=== PATIENT | female | born 1995 | race Two or more races ===

== ENCOUNTER 2022-06-20 16:31 | Emergency (ER) | payer SELFPAY | END 2022-06-20 18:11 | disposition home or self-care (01) | LOC: MW.ED 16:31 | DX: O99.891 Other specified diseases and conditions complicating pregnancy (principal); Z3A.12 12 weeks gestation of pregnancy | CPT/HCPCS: 99283 ==

== ENCOUNTER 2022-10-12 10:31 | Emergency (ER) | payer OTHER | END 2022-10-12 12:07 | disposition home or self-care (01) | LOC: MW.ED 10:31 | DX: O9A.213 Injury, poisoning and certain other consequences of external causes complicating pregnancy, third trimester (principal); S60.141A Contusion of right ring finger with damage to nail, initial encounter; Z3A.28 28 weeks gestation of pregnancy; W22.09XA Striking against other stationary object, initial encounter | CPT/HCPCS: 11740; 99283 ==

== ENCOUNTER 2022-11-16 22:19 | Emergency (ER) | payer SELFPAY ==
[2022-11-16] MEDS ORDERED: diphenhydrAMINE 50 MG/ML SDV IVPUSH ONE (22:34)
[2022-11-16 22:55] LABS: BASOPHILS PERCENT AUTO 0.2 % (0.0-1.5); EOSINOPHILS ABSOLUTE AUTO 0.1 K/uL (0.0-0.7); EOSINOPHILS PERCENT AUTO 0.9 % (0.0-7.0); HEMATOCRIT 35.6 % (36.0-46.0); HEMOGLOBIN 11.6 g/dL (12.0-16.0); LYMPHOCYTES ABSOLUTE AUTO 3.1 K/uL (0.6-2.4); LYMPHOCYTES PERCENT AUTO 35.3 % (16.0-40.0); MEAN CORPUSCULAR HEMOGLOBIN 23.8 pg (27.0-32.0); MEAN CORPUSCULAR HGB CONC 32.6 g/dL (31.0-37.0); MEAN CORPUSCULAR VOLUME 73.1 fL (80.0-98.0); MONOCYTES ABSOLUTE AUTO 0.5 K/uL (0.0-0.8); MONOCYTES PERCENT AUTO 5.5 % (0.0-15.0); NEUTROPHILS PERCENT AUTO 58.1 % (48.0-80.0); NRBC ABSOLUTE 0 K/uL; PLATELET COUNT,PLT 389 K/uL (150-400); RED BLOOD CELL COUNT 4.87 M/uL (4.30-5.90); WHITE BLOOD CELL COUNT,WBC 8.69 K/uL (4.0-11.0)
[2022-11-16 23:20] LABS: A/G RATIO 0.5 (0.9-1.6); ALBUMIN 2.3 g/dL (3.4-5.0); BILIRUBIN TOTAL 0.2 mg/dL (0.2-1.0); CALCIUM 8.4 mg/dL (8.5-10.1); CARBON DIOXIDE,CO2 23.2 mmol/L (21.0-32.0); CREATININE 0.6 mg/dL (0.6-1.0); EST CRCL DRUG DOSING (CG) 121.62 mL/min; POTASSIUM,K 3.8 mmol/L (3.5-5.1); PROTEIN TOTAL,TP 6.7 g/dL (6.4-8.2)
== END 2022-11-16 23:49 | disposition home or self-care (01) ==
LOC: MW.ED 22:19
DX: L29.9 Pruritus, unspecified (principal)
CPT/HCPCS: 36415; 80053; 85025; 96374; 99283; J1200

== ENCOUNTER 2024-02-06 06:53 | Emergency (ER) | payer BC, MEDICAID ==
[2024-02-06] MEDS: Dexamethasone 4 MG Tab PO ONE (07:29)
[2024-02-06] MEDS: Acetaminophen 500 MG Tab PO ONE (07:30)
[2024-02-06] MEDS: Ibuprofen 600 MG Tab PO ONE (07:31)
== END 2024-02-06 07:44 | disposition home or self-care (01) ==
LOC: MW.ED 06:53
DX: H66.91 Otitis media, unspecified, right ear (principal); I10 Essential (primary) hypertension; R05.9 Cough, unspecified; R09.81 Nasal congestion; J02.9 Acute pharyngitis, unspecified; R00.0 Tachycardia, unspecified; H92.01 Otalgia, right ear; Z75.8 Other problems related to medical facilities and other health care
CPT/HCPCS: 99283; A9270; J8540

== ENCOUNTER 2024-09-05 07:18 | Day surgery (SDC) | payer MEDICAID ==
[2024-09-05] MEDS ORDERED: Ferric Subsulfate Topical Soln 8 GM (8 ML) Bottle ONE (07:35)
[2024-09-05] MEDS ORDERED: Lidocaine 1% with EPINEPHrine 1:100,000 10 ML MDV ONE (07:35)
[2024-09-05] MEDS ORDERED: Iodine/Potassium Iodide 5% Solution 14 ML Bottle ONE (07:35)
[2024-09-05] MEDS: Scopalamine 1mg/3day Transdermal Patch TOP ONE (07:49)
[2024-09-05] MEDS ORDERED: Albuterol 0.083% 2.5 MG/3 ML Neb Soln NEB PRN (07:55)
[2024-09-05] MEDS ORDERED: fentaNYL 50 MCG/ML SDV IVPUSH PRN (07:55)
[2024-09-05] MEDS ORDERED: Metoclopramide 10 MG/2 ML SDV IVPUSH PRN (07:55)
[2024-09-05] MEDS ORDERED: Phenylephrine HCl In 0.9% NaCl 1 MG/10 ML Syringe IVPUSH PRN (07:55)
[2024-09-05] MEDS ORDERED: Ondansetron 4 MG/2 ML SDV IVPUSH PRN (07:55)
[2024-09-05] MEDS ORDERED: Naloxone 0.4 MG/ML SDV IVPUSH PRN (07:55)
[2024-09-05] MEDS ORDERED: Morphine 2 MG/ML SYRINGE IVPUSH PRN (07:55)
[2024-09-05] MEDS ORDERED: HYDROmorphone 1 MG/ML Syringe IVPUSH PRN (07:55)
[2024-09-05] MEDS: Lactated Ringers 1,000 ML IV SCH (08:23)
[2024-09-05 08:32] LABS: HEMOGLOBIN 14.2 g/dL (12.0-16.0); MEAN CORPUSCULAR HEMOGLOBIN 27.5 pg (28.0-32.0); MEAN CORPUSCULAR HGB CONC 33.8 g/dL (32.0-36.0); MEAN CORPUSCULAR VOLUME 81.4 fL (83.0-99.0); MEAN PLATELET VOLUME 9.8 fL (9.4-12.3); PLATELET COUNT,PLT 336 K/uL (150-400); RED BLOOD CELL COUNT 5.16 M/uL (4.10-5.30); WHITE BLOOD CELL COUNT,WBC 8.38 K/uL (3.9-11.3)
[2024-09-05] MEDS ORDERED: propofoL 500 MG/50 ML 50 ML ONE (08:36)
[2024-09-05] MEDS ORDERED: fentaNYL 250 MCG/5 ML SDV ONE (08:37)
[2024-09-05] MEDS ORDERED: Propofol 200 MG/20 ML SDV ONE ×2 (08:37→08:39)
[2024-09-05] MEDS ORDERED: Ondansetron 4 MG/2 ML SDV ONE (09:21)
[2024-09-05] MEDS ORDERED: Dexamethasone 4 MG/ML 5 ML MDV ONE (09:21)
[2024-09-05] MEDS ORDERED: Ketorolac 30 MG/ML SDV ONE (09:21)
== END 2024-09-05 11:00 | disposition home or self-care (01) ==
LOC: MW.SDS 07:18
PROVIDERS: ATTEND Obstetrics & Gynecology
DX: D06.9 Carcinoma in situ of cervix, unspecified (principal)
CPT/HCPCS: 36415; 57460; 84703; 85027; A9270; C1729; J1100; J1885; J2405; J2704; J3010; J7120; 00940; J3490